=== PATIENT | male | born 1940 | race Caucasian/White ===

== ENCOUNTER 2023-12-25 19:40 | Inpatient (IN) | payer MEDICARE ==
[~2023-12-25] VITALS: Ht 182.9 cm; Wt 66.2 kg
[2023-12-25] MEDS: IV NORMAL SALINE 1000 ML BAG IV ONE (20:16)
[2023-12-25 20:41] LABS: BASOPHILS % (AUTO) 0.2 % (0.0-2.0); EOSINOPHILS % (AUTO) 0.3 % (0.0-7.0); HEMATOCRIT 37.2 % (36.7-47.1); HEMOGLOBIN 12.2 g/dL (12.5-16.3); LYMPHOCYTES # (AUTO) 1.2 K/uL (0.8-4.8); LYMPHOCYTES % (AUTO) 12.6 % (20.5-51.5); MEAN CORPUSCULAR HEMOGLOBIN 29.9 uug (23.8-33.4); MEAN CORPUSCULAR HGB CONC 33 g/dL (32.5-36.3); MEAN CORPUSCULAR VOLUME 91.3 fL (73.0-96.2); MONOCYTES # (AUTO) 0.8 K/uL (0.1-1.30); MONOCYTES % (AUTO) 7.9 % (0.0-11.0); NEUTROPHILS # (AUTO) 7.8 K/uL (1.8-8.9); PLATELET COUNT (AUTO) 199 K/uL (152-348); RED BLOOD CELL COUNT(AUTO) 4.08 MIL/uL (4.06-5.63); RED CELL DISTRIBUTION WIDTH 15.9 % (12.1-16.2); WHITE BLOOD COUNT (AUTO) 9.9 K/uL (3.6-10.2)
[2023-12-25 20:47] LABS: DIFFERENTIAL COMMENT 1
[2023-12-25 20:55] LABS: ETHANOL < 3 MG/DL (0-10)
[2023-12-25 21:00] LABS: CARBON DIOXIDE 27 mmol/L (21-32); CHLORIDE 108 mmol/L (98-107); CREATININE 1.2 mg/dL (0.6-1.3); GLUCOSE 106 mg/dL (74-106); POTASSIUM 4.1 mmol/L (3.5-5.1); SODIUM SERUM 142 mmol/L (136-145); UREA NITROGEN, BLOOD 35 mg/dL (7-18)
[2023-12-25 21:09] LABS: ALANINE AMINOTRANSFERASE 10 U/L (16-63); ALBUMIN 3.8 g/dL (3.4-5.0); ALKALINE PHOSPHATASE 95 U/L (50-136); ASPARTATE AMINOTRANSFERASE 12 U/L (15-37); BILIRUBIN,DIRECT 0.2 mg/dL (0.0-0.2); BILIRUBIN,TOTAL 0.9 mg/dL (0.2-1.0); TOTAL PROTEIN, SERUM 6.9 g/dL (6.4-8.2)
[2023-12-25 21:25] LABS: *BILIRUBIN,URIN NEGATIVE (NEGATIVE); *CLARITY,URINE CLOUDY (CLEAR); *COLOR,URINE YELLOW (YELLOW); *KETONES,URINE NEGATIVE (NEGATIVE); *PROTEIN,URINE 1+ (NEGATIVE); *UROBILINOGEN,URINE 0.2 E.U./dl (NORMAL); LEUKOCYTE ESTERASE ,URINE NEGATIVE (NEGATIVE); NITRITE, URINE NEGATIVE (NEGATIVE); UGLUCOSE NEGATIVE (NEGATIVE)
[2023-12-25] MEDS ORDERED: CARB1TAB21 PO (21:28)
[2023-12-25] MEDS ORDERED: PRUC2TAB PO (21:28)
[2023-12-25] MEDS ORDERED: MELA10TA PO (21:28)
[2023-12-25] MEDS ORDERED: DONE5TAB34 PO (21:28)
[2023-12-25] MEDS ORDERED: SIME180C35 PO (21:28)
[2023-12-25] MEDS ORDERED: POLY17PO4 GT (21:28)
[2023-12-25] MEDS ORDERED: CHOL2000 PO (21:28)
[2023-12-25] MEDS ORDERED: CYAN500T9 PO (21:28)
[2023-12-25] MEDS ORDERED: ACET-2154 PO (21:28)
[2023-12-25] MEDS ORDERED: FOLI1TAB27 PO (21:28)
[2023-12-25 21:29] LABS: *BLOOD, URINE TRACE (NEGATIVE)
[2023-12-25] MEDS ORDERED: CARB1TAB39 PO (21:31)
[2023-12-25 21:32] LABS: RBC,URINE 0-3 /HPF (0-3); WBC,URINE 0-3 /HPF (0-3)
[2023-12-25 21:33] LABS: BACTERIA,URINE FEW /HPF (NONE SEEN); SQUAMOUS EPITHELIAL CELL,UR FEW /HPF (NONE SEEN)
[2023-12-25 21:34] LABS: COARSE GRANULAR CASTS,URINE 0-3 /LPF
[2023-12-25] MEDS ORDERED: CARBIDOPA/LEVODOPA CR 25-100MG TABLET.SA PO ONE (21:42)
[2023-12-25] MEDS ORDERED: CEFTRIAXONE /D5W 50ML IVPB **ER PYXIS IV ONE (21:49)
[2023-12-25] MEDS: CEFTRIAXONE 1 G in IV DEXTROSE 5% 50 ML IV ONE (21:55)
[2023-12-25 22:11] LABS: *AMPHETAMINE, URINE NEGATIVE (NEGATIVE); *BARBITURATE, URINE NEGATIVE (NEGATIVE); *BENZODIAZEPINE, URINE NEGATIVE (NEGATIVE); *CANNABINOID, URINE NEGATIVE (NEGATIVE); *COCCAINE, URINE NEGATIVE (NEGATIVE); *OPIATE, URINE NEGATIVE (NEGATIVE); *PHENCYCLIDINE SCREEN,URINE NEGATIVE (NEGATIVE); FENTANYL, URINE NEGATIVE (NEGATIVE)
[2023-12-25] MEDS: CARBIDOPA/LEVODOPA CR 25-100MG TABLET.SA PO SCH ×2 (22:20)
[2023-12-26 02:52] LABS: ACETAMINOPHEN < 10.0 ug/mL (10-30)
[2023-12-26 04:00] VITALS: BP 137/61; TEMP 98.2; O2SAT 94; O2SAT 97
[2023-12-26] MEDS ORDERED: MAGNESIUM HYDROXIDE 30 ML LIQUID UDC PO PRN (05:15)
[2023-12-26] MEDS ORDERED: ONDANSETRON 4 MG/2 ML VIAL IV PRN (05:15)
[2023-12-26] MEDS ORDERED: REMEDY ESSENTIAL ZINC PASTE 113 GM TP PRN (05:15)
[2023-12-26] MEDS ORDERED: ZOLPIDEM 5 MG TABLET PO PRN (05:15)
[2023-12-26] MEDS ORDERED: ACETAMINOPHEN 325 MG TABLET PO PRN (05:15)
[2023-12-26] MEDS: IV 1/2NS 1000 ML 1,000 ML IV PRN (05:28)
[2023-12-26] MEDS: CARBIDOPA/LEVODOPA 25-100MG TABLET PO SCH (05:43)
[2023-12-26] MEDS: ENOXAPARIN SODIUM 30 MG/0.3 ML DISP.SYRIN SQ SCH (05:44)
[2023-12-26] MEDS ORDERED: MELATONIN 3 MG TABLET PO PRN (06:00)
[2023-12-26] MEDS: PANTOPRAZOLE SODIUM 40 MG TABLET.DR PO SCH (06:14)
[2023-12-26 07:45] VITALS: BP 108/53; TEMP 97.3; O2SAT 96
[2023-12-26] MEDS ORDERED: DONEPEZIL 5 MG TABLET PO SCH (09:00)
[2023-12-26] MEDS ORDERED: FOLIC ACID 1 MG TABLET PO SCH (09:00)
[2023-12-26] MEDS: MIRALAX 17 GM POWD.PACK PO SCH (09:05)
[2023-12-26] MEDS: FOLIC ACID 1 MG TABLET PO SCH (09:31)
[2023-12-26] MEDS: DONEPEZIL 5 MG TABLET PO SCH (11:23)
[2023-12-26 12:00] VITALS: BP 116/62; TEMP 97.8; O2SAT 94
[2023-12-26 16:24] VITALS: BP 107/51; TEMP 97.8; O2SAT 97
[2023-12-26 20:58] VITALS: O2SAT 98; O2SAT 99
[2023-12-26] MEDS ORDERED: Medication Not On Formulary EA (Melatonin 10 MG) PO SCH (21:00)
[2023-12-26 21:11] VITALS: BP 156/64; TEMP 98.5; O2SAT 100
[2023-12-26] MEDS: CARBIDOPA/LEVODOPA CR 25-100MG TABLET.SA PO SCH (21:30)
[2023-12-26] MEDS: CEFTRIAXONE 1 G in IV DEXTROSE 5% 50 ML IV SCH (21:31)
[2023-12-26] MEDS: MELATONIN 3 MG TABLET PO SCH (21:31)
[2023-12-27 04:48] VITALS: BP 134/58; TEMP 98.2; O2SAT 95
[2023-12-27 07:28] VITALS: BP 147/62; TEMP 98.6; O2SAT 94
[2023-12-27 07:31] LABS: BASOPHILS # (AUTO) 0.1 K/UL (0.0-0.2); BASOPHILS % (AUTO) 0.4 % (0.0-2.0); EOSINOPHILS # (AUTO) 0.1 K/uL (0.0-0.7); EOSINOPHILS % (AUTO) 0.4 % (0.0-7.0); HEMATOCRIT 37.6 % (36.7-47.1); HEMOGLOBIN 12.6 g/dL (12.5-16.3); LYMPHOCYTES # (AUTO) 2.1 K/uL (0.8-4.8); LYMPHOCYTES % (AUTO) 16.4 % (20.5-51.5); MEAN CORPUSCULAR HEMOGLOBIN 29.9 uug (23.8-33.4); MEAN CORPUSCULAR HGB CONC 34 g/dL (32.5-36.3); MEAN CORPUSCULAR VOLUME 89.1 fL (73.0-96.2); MONOCYTES # (AUTO) 0.8 K/uL (0.1-1.30); MONOCYTES % (AUTO) 6.2 % (0.0-11.0); NEUTROPHILS # (AUTO) 9.8 K/uL (1.8-8.9); NEUTROPHILS % (AUTO) 76.6 % (38.5-71.5); PLATELET COUNT (AUTO) 214 K/uL (152-348); RED BLOOD CELL COUNT(AUTO) 4.23 MIL/uL (4.06-5.63); RED CELL DISTRIBUTION WIDTH 15.2 % (12.1-16.2); WHITE BLOOD COUNT (AUTO) 12.8 K/uL (3.6-10.2)
[2023-12-27 07:44] LABS: DIFFERENTIAL COMMENT 1
[2023-12-27 07:47] LABS: CREATININE 0.9 mg/dL (0.6-1.3); MAGNESIUM 1.8 mg/dL (1.8-2.4); POTASSIUM 4.4 mmol/L (3.5-5.1)
[2023-12-27] MEDS: CHOLECALCIFEROL 1,000 UNIT TABLET PO SCH (09:30)
[2023-12-27 11:12] VITALS: BP 115/46; TEMP 98.1; O2SAT 96
[2023-12-27] MEDS: PIPERACILLIN SODIUM/TAZOBACTAM 3.375 G in IV DEXTROSE 5% 100 ML IV SCH (13:18)
[2023-12-27] MEDS: CARBIDOPA/LEVODOPA 25-100MG TABLET PO SCH (13:24)
[2023-12-27] MEDS ORDERED: PIPERACILLIN SODIUM/TAZOBACTAM 3.375 G in IV DEXTROSE 5% 50 ML IV SCH (14:00)
[2023-12-27 15:26] VITALS: BP 129/55; TEMP 98.2; O2SAT 94
[2023-12-27] MEDS ORDERED: CARBIDOPA/LEVODOPA CR 25-100MG TABLET.SA PO SCH (22:30)
== END 2023-12-27 17:25 | disposition left against medical advice (07) | DRG 682 ==
LOC: ER 19:42 → TELE3 12-26 02:10
PROVIDERS: ADMIT Nurse Practitioner Family; ATTEND Internal Medicine
DX: N17.0 Acute kidney failure with tubular necrosis (principal); G92.8 Other toxic encephalopathy; J18.9 Pneumonia, unspecified organism; Z68.1 Body mass index [BMI] 19.9 or less, adult; I31.39 Other pericardial effusion (noninflammatory); S20.212A Contusion of left front wall of thorax, initial encounter; G20.A1 Parkinson's disease without dyskinesia, without mention of fluctuations; W01.198A Fall on same level from slipping, tripping and stumbling with subsequent striking against other object, initial encounter; Z53.29 Procedure and treatment not carried out because of patient's decision for other reasons; Y92.89 Other specified places as the place of occurrence of the external cause; Y93.01 Activity, walking, marching and hiking; Z87.891 Personal history of nicotine dependence; G31.84 Mild cognitive impairment of uncertain or unknown etiology; R53.1 Weakness; M50.31 Other cervical disc degeneration, high cervical region; I51.7 Cardiomegaly; R63.6 Underweight
CPT/HCPCS: 36415; 70450; 71045; 71250; 72125; 83735; 84100; 84484; 85025; 93005; A4606; A4663; A6213; G0378; G0480; J0696; J1650; J2543; J7040